=== PATIENT | female | born 1965 | race Caucasian/White ===

== ENCOUNTER 2025-01-27 11:12 | Outpatient (AMB) | payer OTHER, SELFPAY ==
--- NOTE | 2025-01-27 11:17 | A.OFFPC_ITS ---
Vital Signs 01/27/25 11:22 01/27/25 11:32 Height 5 ft 5.04 in Weight 181 lb BMI 30.1 BP 174/90 H 158/94 H Blood Pressure Location Rt brachial Rt brachial Position Sitting Sitting Respiration 14 Pulse 100 Pulse Source Pulse Oximeter Temp 98 F Temp Source Oral Pulse Oximetry (%) 99 Oxygen Delivery Method Room Air Intake Visit Reasons: CPE Intake Note: New patient visit Retirement Consultant Required: No Allergies No Known Allergies Allergy (Verified 01/27/25 11:19) Medication List - Last Reconciled 01/27/25 by Felipa Fermin PA-C loratadine (Claritin) 10 mg PO DAILY Tobacco use date assessed: 01/27/25 Dental Screening Dental Screen Date: 01/27/25 Did you have a dental visit in the last 12 months?: Yes Did you have a dental problem in the last 6 months where you did not have access to dental care?: No Was dental information given to patient?: Patient has dentist HPI CPE HPI Details Patient is a 59-year-old female who presents today to [facility]. She has not seen a provider in many years. CV: Blood pressure today in the office is elevated at 158/94. She states that every time she goes with the dentist her blood pressure is normal. She has a lot of stress and anxiety surrounding doctors appointments. She says that she had a bad experience many years ago and has not been back since. She denies any chest pain or shortness on breath. Psych: Has had some increased anxiety but states that sign has a history of generalized anxiety. She has for most of her life and it has only worsened with age. 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 Bone density: Overdue Colonoscopy: Overdue-does not want this at this point but is open to a cologuard. 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 1. Little interest or pleasure in doing things: not at all 2. Feeling down, depressed, or hopeless: not at all 3. Trouble falling or staying asleep, or sleeping too much: not at all 4. Feeling tired or having little energy: not at all 5. Poor appetite or overeating: not at all 6. Feeling bad about yourself - or that you are a failure or have let yourself or your family down: not at all 7. Trouble concentrating on things, such as reading the newspaper or watching television: not at all 8. Moving or speaking so slowly that other people could have noticed. Or the opposite - being so fidgety or restless that you have been moving around a lot more than usual: not at all 9. Thoughts that you would be better off or of hurting yourself in some way: not at all Total score: 0 Depression Screening Interpretation: Negative Depression Screening Done: Yes 47046 - PHQ-9 Billing: Yes Source: Developed by Drs. Sahil Garza, Sarah Allen, Sean Anderson and colleagues, with an educational juan david from [employer]. Thrive Questionnaire Date Thrive assessed: 01/20/25 I am a: Patient What is your living situation today?: I have a steady place to live Within the past 12 months, did the food you bought not last and you didn't have the money to get more?: Never true Within the past 12 months, did you worry whether your food would run out before you got money to buy more?: Never true Do you have trouble paying for medicines?: No Do you have trouble getting transportation to medical appointments?: No Do you have trouble paying your heating and electricity bill?: No Do you have trouble taking care of your child, family member or friend?: No Do you have trouble with day-to-day activities such as bathing, preparing meals, shopping, managing finances, etc.?: No Are you currently unemployed and looking for a job?: No Are you interested in more education?: No Please select the resources that you would like help with: None Currently or been in a relationship where the following occur: No concerns reported THRIVE Score: 0 AUDIT C Alcohol Use Questionnaire (AUDIT-C) 1. How often do you have a drink containing alcohol?: 2-4 times a month 2. How many drinks containing alcohol do you have on a typical day when you are drinking?: 1 or 2 3. How often do you have six or more drinks on one occasion?: Never Total Score: 2 ERIN-7 AMB Questionnaire ERIN-7 Date ERIN - 7 assessed: 01/27/25 Feeling nervous, anxious, or on edge: 1 = Several days Not being able to stop or control worryin = Several days Worrying too much about different things: 1 = Several days Trouble relaxin = Several days Being so restless that it is hard to sit still: 1 = Several days Becoming easily annoyed or irritable: 0 = Not at all Feeling afraid as if something awful might happen: 1 = Several days Total ERIN-7 score (0-4 normal; 5-9 mild; 10-14 moderate; 15-21 severe): 6 Source: Developed by Drs. Sahil Garza, Sarah Allen, Sean Anderson and colleagues, with an educational juan david from [employer]. ERIN-7 Assessment Billing ERIN-7 Assessment Tool: ERIN-7 Assessment 04390 Physical exam (Primary Care) Vital Signs: Last Vital Signs Temp 98 F 01/27/25 11:22 Pulse 100 01/27/25 11:22 Resp 14 01/27/25 11:22 BP 174/90 H 01/27/25 11:22 Pulse Ox 99 01/27/25 11:22 Oxygen Delivery Method Room Air 01/27/25 11:22 BMI result Body Mass Index 30.1 Tobacco/Smoking Status: Tobacco use Status Tobacco use date assessed 01/27/25 01/27/25 11:27 Patient Tobacco Use Status Former Tobacco user 01/27/25 11:27 e-Cigarette/Vaping Use Never Used 01/27/25 11:27 PHQ-9: PHQ-9 Score PHQ-9: Total score 0 01/27/25 11:27 Depression Screening Interpretation: Negative Thrive Assessment: Date of Thrive Assessment Date Thrive assessed 01/20/25 01/27/25 11:19 Currently or been in a relationship where the following occur: No concerns reported Const Orientation/consciousness: patient oriented x3 HENMT Ears: hearing grossly normal bilaterally Neck Thyroid: Thyroid normal Lymphatic: no lymphadenopathy noted Resp Auscultation: clear to auscultation bilaterally Cardio Rate: regular rate Rhythm: regular rhythm Heart sounds: S1 normal heart sound present and S2 normal heart sound present GI Inspection: Yes normal to inspection Palpation (GI): Soft to palpation and Other GI palpation findings present (nontender, no cva tenderness) Auscultation: normoactive bowel sounds Rectal Exam - Female: deferred Skin General skin exam: no rashes or lesions noted Neuro General: patient oriented x3, gait normal and no focal motor deficits Coding Level of Care Code New Pt Level 4 (47411) Complex EM visit Add On G2211 Diagnoses Elevated blood pressure reading without diagnosis of hypertension R03.0 Generalized anxiety disorder F41.1 Additional Codes ERIN-7 Assessment Billing - ERIN-7 Assessment Tool: ERIN-7 Assessment 81933 ([id number]) PHQ-9 - 02150 - PHQ-9 Billing: Yes ([id number]) Assessment & Plan Assessment & Plan (1) Elevated blood pressure reading without diagnosis of hypertension: Code(s): R03.0 - Elevated blood-pressure reading, without diagnosis of hypertension Category: Medical Plan: She is going to get a blood pressure cuff and check her blood pressures at home. Labs ordered today. She is asymptomatic and reports a being normal at a dentist office a couple of months ago. We will recheck in a few weeks. (2) Generalized anxiety disorder: Code(s): F41.1 - Generalized anxiety disorder Category: Medical Plan: We will start Effexor. Discussed risks and benefits and adverse effects of this medication. Follow up in a few weeks. Sooner if needed. Plan Mammogram ordered, bone density ordered, Cologuard ordered, referral to trimming operator placed. Labs ordered. Orders: Orders MM screening mammo BI Today Z12.31 - Encounter for screening mammogram for malignant neoplasm of breast Complete Blood Count Auto Diff Today R03.0 - Elevated blood-pressure reading, without diagnosis of hypertension, Z01.89 - Encounter for other specified special examinations TSH reflex Free T4 Today R03.0 - Elevated blood-pressure reading, without diagnosis of hypertension, Z01.89 - Encounter for other specified special examinations UA CC w/rflx Micro + Cult Today R03.0 - Elevated blood-pressure reading, without diagnosis of hypertension, Z01.89 - Encounter for other specified special examinations, Z13.220 - Encounter for screening for lipoid disorders Microalbumin, Random (w Creat) Today R03.0 - Elevated blood-pressure reading, without diagnosis of hypertension, Z01.89 - Encounter for other specified special examinations Vitamin B12 and Folate Today R03.0 - Elevated blood-pressure reading, without diagnosis of hypertension, Z01.89 - Encounter for other specified special examinations XR DEXA axial skeleton Today N95.1 - Menopausal and female climacteric states Comprehensive [place]. Panel Fast Today R03.0 - Elevated blood-pressure reading, without diagnosis of hypertension, Z01.89 - Encounter for other specified special examinations Lipid Panel Today R03.0 - Elevated blood-pressure reading, without diagnosis of hypertension, Z01.89 - Encounter for other specified special examinations Referrals [employer] Referral Z01.419 - Encounter for gynecological examination (general) (routine) without abnormal findings Cologuard Test Z12.11 - Encounter for screening for malignant neoplasm of colon Medications: New venlafaxine ER (Effexor XR) 37.5 mg PO QPM 90 caps 0RF
[2025-01-27 11:22] VITALS: BP 174/90; PULSE 100; RESP 14; TEMP 36.6; O2SAT 99; BMI 30.1
[2025-01-27 11:32] VITALS: BP 158/94
== END 2025-01-27 12:06 | disposition home or self-care (01) ==
LOC: HO.HMCFM 11:13
PROVIDERS: PCP Physician Assistant; Visit Provider Physician Assistant
DX: R03.0 Elevated blood-pressure reading, without diagnosis of hypertension (principal); F41.1 Generalized anxiety disorder

== ENCOUNTER → 2025-01-27 11:12 | Outpatient (BNVA) | payer OTHER, SELFPAY | PROVIDERS: PCP Physician Assistant; Visit Provider Physician Assistant | DX: F41.1 Generalized anxiety disorder (principal); R03.0 Elevated blood-pressure reading, without diagnosis of hypertension | CPT/HCPCS: 96127 ==

== ENCOUNTER 2025-02-19 07:52 | Outpatient (REF) | payer OTHER, SELFPAY ==
[2025-02-19 11:16] LABS: MANUAL DIFF FLAG NO
[2025-02-19 11:29] LABS: Hematocrit 44.6 % (37.0-47.0); Hemoglobin 14.3 g/dl (12.0-16.0); Imm Gran Abs Auto 0.02 X10*3/uL (0.00-0.03); Imm Gran Pct Auto 0.3 % (0.0-0.4); Lymphocytes Absolute Auto 2.2 X10*3/uL (1.2-4.9); Mean Corpuscular HGB Conc 32.1 g/dl (31.0-35.0); Mean Corpuscular Hemoglobin 30.3 pg (27.0-33.0); Mean Corpuscular Volume 94.5 fL (80.0-98.0); NRBC Abs Auto 0.000 X10*3/uL (0.0-0.012); NRBC Pct Auto 0.0 /100WBC (0.0-0.2); Platelet Count 366 X10*3/uL (160-400); Red Blood Count 4.72 X10*6/uL (4.20-5.50); White Blood Count 6.7 X10*3/uL (4.8-10.8)
[2025-02-19 11:35] LABS: Appearance Urine Clear; Glucose Urine UA Negative (Negative); PH 6.5 (5.0-9.0); Specific Gravity - Urine 1.015 (1.005-1.025); UMIC TRIGGER UACC YES
[2025-02-19 11:39] LABS: Alanine Aminotransferase 53 U/L (0-31); Albumin Level 4.4 g/dL (3.5-5.0); Alkaline Phosphatase 88 U/L (39-117); Anion Gap 11 (12-20); Aspartate Amino Transferase 42 U/L (5-31); Blood Urea Nitrogen 8 mg/dL (9-16); Calcium 9.3 mg/dL (8.4-10.2); Carbon Dioxide 28 mmol/L (22-29); Chloride 102 mmol/L (96-108); Cholesterol 208 mg/dL (<200); Estimated Glomerular Filt Rate > 60; HDL Cholesterol 47 mg/dL (>40); Potassium 4.1 mmol/L (3.3-5.1); Sodium 137 mmol/L (135-145); Total Protein 7.2 g/dL (6.5-8.0); Triglycerides 155 mg/dL (<150)
[2025-02-19 12:02] LABS: Folate 6.5 ng/mL (> or = 4.0); Vitamin B12 396 pg/mL (200-900)
[2025-02-19 12:17] LABS: Microalbum/Creatinine Ratio Ur 9.6 ug/mg cr (<30)
== END 2025-02-19 07:53 | disposition home or self-care (01) ==
LOC: HO.WFDLDS 07:52
PROVIDERS: Visit Provider Physician Assistant
DX: Z01.89 Encounter for other specified special examinations (principal); R03.0 Elevated blood-pressure reading, without diagnosis of hypertension
CPT/HCPCS: 36415; 80053; 80061; 81001; 82043; 82570; 82607; 82746; 84443; 85025

== ENCOUNTER 2025-03-03 09:31 | Outpatient (AMB) | payer OTHER, SELFPAY ==
--- NOTE | 2025-03-03 09:45 | MHC.PC.OV ---
Vital Signs 03/03/25 09:48 Height 5 ft 5.04 in Weight 178 lb 8 oz BMI 29.7 BP 126/84 Blood Pressure Location Rt brachial Position Sitting Respiration 14 Pulse 75 Pulse Source Pulse Oximeter Pulse Oximetry (%) 96 Oxygen Delivery Method Room Air Intake Visit Reasons: med check, labs and bp Intake Note: Medication follow, lab results. 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 She was seen recently to establish care and noted to have some anxiety and elevated blood pressure readings. CV: Blood pressure today in the office is 126/84. Blood pressures have been normal at home. She states that every time she goes with the dentist her blood pressure is normal. She has a lot of stress and anxiety surrounding doctors appointments. She denies any chest pain or shortness on breath. Psych: She is feeling better with the effexor. She says that this appears to be effective for her because she can tolerate during the day. Her recent example is that she had to bake a cake and normally have put out over the cake not being perfect but took it with ease this weekend. She feels like this is the right dose for her at this point. No SI/HI. She did recently get labs and the LFTs were elevated along with glucose and cholesterol. She states that she has been eating a lot more ice cream and had more dietary indiscretions this summer. She says that she eats ice cream almost every night in his going to stop this. 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 [employer] Current occupational exposures/hazards: No Cognitive needs: No Hearing needs: No Vision needs: Yes (short distance vision ) Questionnaire Thrive Questionnaire Date Thrive assessed: 01/20/25 I am a: Patient What is your living situation today?: I have a steady place to live Within the past 12 months, did the food you bought not last and you didn't have the money to get more?: Never true Within the past 12 months, did you worry whether your food would run out before you got money to buy more?: Never true Do you have trouble paying for medicines?: No Do you have trouble getting transportation to medical appointments?: No Do you have trouble paying your heating and electricity bill?: No Do you have trouble taking care of your child, family member or friend?: No Do you have trouble with day-to-day activities such as bathing, preparing meals, shopping, managing finances, etc.?: No Are you currently unemployed and looking for a job?: No Are you interested in more education?: No Please select the resources that you would like help with: None Currently or been in a relationship where the following occur: No concerns reported THRIVE Score: 0 AUDIT C Alcohol Use Questionnaire (AUDIT-C) 1. How often do you have a drink containing alcohol?: Monthly or less 2. How many drinks containing alcohol do you have on a typical day when you are drinking?: 1 or 2 3. How often do you have six or more drinks on one occasion?: Never Total Score: 1 ERIN-7 AMB Questionnaire ERIN-7 Date ERIN - 7 assessed: 01/27/25 Source: Developed by Drs. Sahil Garza, Sarah Allen, Sean Anderson and colleagues, with an educational juan david from [employer]. Physical exam (Primary Care) Vital Signs: Last Vital Signs Pulse 75 03/03/25 09:48 Resp 14 03/03/25 09:48 BP 126/84 03/03/25 09:48 Pulse Ox 96 03/03/25 09:48 Oxygen Delivery Method Room Air 03/03/25 09:48 BMI result Body Mass Index 29.7 Tobacco/Smoking Status: Tobacco use Status Tobacco use date assessed 03/03/25 03/03/25 09:50 Patient Tobacco Use Status Former Tobacco user 03/03/25 09:50 e-Cigarette/Vaping Use Never Used 03/03/25 09:50 Thrive Assessment: Date of Thrive Assessment Date Thrive assessed 01/20/25 03/03/25 09:47 Currently or been in a relationship where the following occur: No concerns reported Const Orientation/consciousness: patient oriented x3 HENMT Ears: hearing grossly normal bilaterally Neck Thyroid: Thyroid normal Lymphatic: no lymphadenopathy noted Resp Auscultation: clear to auscultation bilaterally Cardio Rate: regular rate Rhythm: regular rhythm Heart sounds: S1 normal heart sound present and S2 normal heart sound present GI Inspection: Yes normal to inspection Palpation (GI): Soft to palpation and Other GI palpation findings present (nontender, no cva tenderness) Auscultation: normoactive bowel sounds Rectal Exam - Female: deferred Skin General skin exam: no rashes or lesions noted Neuro General: patient oriented x3, gait normal and no focal motor deficits Results Reviewed Results Reviewed: Laboratory Tests 02/19/25 02/19/25 07:54 08:04 WBC 6.7 RBC 4.72 Hgb 14.3 Hct 44.6 Plt Count 366 Sodium 137 Potassium 4.1 Chloride 102 Carbon Dioxide 28 Anion Gap 11 L BUN 8 L Creatinine 0.81 Estimated GFR > 60 AST 42 H ALT 53 H Triglycerides 155 H Cholesterol 208 H LDL Cholesterol, Calc 130 H HDL Cholesterol 47 TSH 0.83 Urine Creatinine 103.44 Urine Microalbumin 10.0 Microalb/Creat Ratio 9.6 Coding Level of Care Code Est Pt Level 4 (87971) Complex EM visit Add On G2211 Diagnoses Generalized anxiety disorder F41.1 Elevated blood pressure reading without diagnosis of hypertension R03.0 IFG (impaired fasting glucose) R73.01 Elevated LFTs R79.89 Positive colorectal cancer screening using Cologuard test R19.5 Assessment & Plan Assessment & Plan (1) Generalized anxiety disorder: Code(s): F41.1 - Generalized anxiety disorder Category: Medical Plan: Continue current regimen. Currently doing well with this regimen (2) Elevated blood pressure reading without diagnosis of hypertension: Code(s): R03.0 - Elevated blood-pressure reading, without diagnosis of hypertension Category: Medical Plan: Improved from last visit (3) IFG (impaired fasting glucose): Code(s): R73.01 - Impaired fasting glucose Category: Medical Plan: A1c ordered. We discussed signs and symptoms of diabetes. Advised her to reduce her carbohydrate and sugar intake. (4) Elevated LFTs: Code(s): R79.89 - Other specified abnormal findings of blood chemistry Category: Medical Plan: As above. We will recheck labs (5) Positive colorectal cancer screening using Cologuard test: Code(s): R19.5 - Other fecal abnormalities Category: Medical Plan: Recently completed Cologuard and states that the tests came back over the weekend showing positive results that needed follow up colonoscopy. Ordered referral today. Orders: Referrals Gastroenterology Referral R19.5 - Other fecal abnormalities
[2025-03-03 09:48] VITALS: BP 126/84; PULSE 75; RESP 14; O2SAT 96; BMI 29.7
== END 2025-03-03 10:13 | disposition home or self-care (01) ==
LOC: HO.HMCFM 09:32
PROVIDERS: PCP Physician Assistant; Visit Provider Physician Assistant
DX: F41.1 Generalized anxiety disorder (principal); R03.0 Elevated blood-pressure reading, without diagnosis of hypertension; R73.01 Impaired fasting glucose; R79.89 Other specified abnormal findings of blood chemistry; R19.5 Other fecal abnormalities

== ENCOUNTER 2025-03-19 08:18 | Outpatient (REF) | payer OTHER, SELFPAY ==
[2025-03-19 11:12] LABS: Appearance Urine Clear; Glucose Urine UA Negative (Negative); PH 6.5 (5.0-9.0); Specific Gravity - Urine 1.010 (1.005-1.025); UMIC TRIGGER UACC YES
[2025-03-19 11:54] LABS: Alanine Aminotransferase 23 U/L (0-31); Albumin Level 4.3 g/dL (3.5-5.0); Alkaline Phosphatase 70 U/L (39-117); Aspartate Amino Transferase 24 U/L (5-31); Hemoglobin A1C 218.9807 umol/L; Total Hemoglobin (HGBA1C) 5324.1106 umol/L; Total Protein 7.1 g/dL (6.5-8.0)
== END 2025-03-19 08:19 | disposition home or self-care (01) ==
LOC: HO.WFDLDS 08:18
PROVIDERS: Visit Provider Physician Assistant
DX: Z01.89 Encounter for other specified special examinations (principal); Z13.220 Encounter for screening for lipoid disorders; R03.0 Elevated blood-pressure reading, without diagnosis of hypertension; R73.01 Impaired fasting glucose; R79.89 Other specified abnormal findings of blood chemistry
CPT/HCPCS: 36415; 80076; 81001; 83036

== ENCOUNTER → 2025-03-25 15:44 | Outpatient (AMB) | payer OTHER, SELFPAY ==
--- NOTE | 2025-03-25 15:41 | A.OFFPC_ITS ---
Intake Visit Reasons: prediabetic telehealth or in person Intake Note: Discuss increasing venlafaxine Draft Roller Picker Required: No Allergies No Known Allergies Allergy (Verified 03/25/25 15:42) Medication List - Last Reconciled 03/25/25 by Felipa Fermin PA-C loratadine (Claritin) 10 mg PO DAILY Tobacco use date assessed: 03/25/25 Dental Screening Dental Screen Date: 01/27/25 HPI prediabetic telehealth or in person HPI Details Patient is a 59-year-old female who presents today for a follow up. Psych: She is feeling better with the effexor. She does feel like the medi cation could be a little increased. She is overall feeling like her anxiety still present. She thinks about going for her mammogram every day with some fear/worry. She feels like this is the right dose for her at this point. No SI/HI. Endo: last labs showed A1c of 5.9 . She states that she is making diet changes. 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 Sahil Garza, Sarah Allen, Sean Anderson and colleagues, with an educational juan david from [employer]. Physical exam (Primary Care) Tobacco/Smoking Status: Tobacco use Status Tobacco use date assessed 03/25/25 03/25/25 15:45 Patient Tobacco Use Status Former Tobacco user 03/25/25 15:45 e-Cigarette/Vaping Use Never Used 03/25/25 15:45 Thrive Assessment: Date of Thrive Assessment Date Thrive assessed 01/20/25 03/25/25 15:43 Telehealth Telehealth Telehealth Platform: Telephone Location of provider rendering services: practice address Location of patient: address on file Patient Identification confirmed using: Name, : Yes Telehealth method: voice only Patient verbally consented to treatment: Yes Patient verbally consented to billing insurance company: Yes Patient informed of any privacy concerns related to visit: Yes Minutes spent on Phone/Video with Pt.: 15 Results Reviewed Results Reviewed: Laboratory Tests 02/19/25 03/19/25 07:54 08:20 WBC 6.7 RBC 4.72 Hgb 14.3 Hct 44.6 Plt Count 366 Estimat Average Glucose 123 Hemoglobin A1c % 5.9 AST 24 ALT 23 Coding Level of Care Code Tele Est Pt Level 2 (02124) Diagnoses Generalized anxiety disorder F41.1 Elevated LFTs R79.89 Prediabetes R73.03 Assessment & Plan Assessment & Plan (1) Generalized anxiety disorder: Code(s): F41.1 - Generalized anxiety disorder Category: Medical Plan: Increase venlafaxine to 75 mg (2) Elevated LFTs: Code(s): R79.89 - Other specified abnormal findings of blood chemistry Category: Medical Plan: Improved with diet changes (3) Prediabetes: Code(s): R73.03 - Prediabetes Category: Medical Plan: We reviewed the pathophysiology of diabetes and discussed diet and lifestyle modifications. We will monitor labs. Orders: Orders Comprehensive [place]. Panel Fast Today F41.1 - Generalized anxiety disorder, R73.03 - Prediabetes, R79.89 - Other specified abnormal findings of blood chemistry Lipid Panel Today F41.1 - Generalized anxiety disorder, R73.03 - Prediabetes, R79.89 - Other specified abnormal findings of blood chemistry Hemoglobin A1c Today F41.1 - Generalized anxiety disorder, R73.01 - Impaired fasting glucose, R73.03 - Prediabetes, R79.89 - Other specified abnormal findings of blood chemistry TSH reflex Free T4 Today F41.1 - Generalized anxiety disorder, R73.03 - Prediabetes, R79.89 - Other specified abnormal findings of blood chemistry Complete Blood Count Auto Diff Today F41.1 - Generalized anxiety disorder, R73.03 - Prediabetes, R79.89 - Other specified abnormal findings of blood chemistry Medications: New venlafaxine ER (Effexor XR) 75 mg PO DAILY 90 caps 1RF
== END ==
LOC: HO.HMCFM 15:44
PROVIDERS: PCP Physician Assistant; Visit Provider Physician Assistant
DX: F41.1 Generalized anxiety disorder (principal); R79.89 Other specified abnormal findings of blood chemistry; R73.03 Prediabetes

== ENCOUNTER 2025-04-01 12:27 | Outpatient (REF) | payer OTHER, SELFPAY ==
--- NOTE | ~2025-04-01 | MM_ITS ---
STUDY: DUAL ENERGY X-RAY ABSORPTIOMETRY / DXA REASON FOR EXAM: Female, 59 years old N95.1 - Menopausal and female climacteric states TECHNIQUE: Bone Mineral Density (BMD) measurements of the lumbar spine and left hip were obtained using [employer] COMPARISON: None FINDINGS: L1-L3 BMD: 0.961 g/cm2 L1-L3 T score: -1.7. This corresponds to osteopenia. Left femoral neck BMD: 0.909 g/cm2 Left femoral neck T score: -0.9. This corresponds to Normal bone density. Left total hip BMD: 0.832 g/cm2 Left total hip T score: -1.4. This corresponds to osteopenia. FRAX score: 10 year risk of major osteoporotic fracture 6.3%, 10 year risk of hip fracture 0.3% MM/XR DEXA axial skeleton IMPRESSION: Osteopenia Reference Information: The T-score is the number of standard deviations above or below the standard which is normal for young adults at their peak bone mineral density. The World Health Organization (WHO) interprets the T-scores as follows: At or above -1 SD Normal bone density Between -1 and -2.5 SD Osteopenia At or below -2.5 SD Osteoporosis Electronically signed by: Elinor Castro MD 04/01/2025 02:27 PM EDT
--- NOTE | ~2025-04-01 | MM_ITS ---
EXAMINATION: MM SCREENING DIGITAL BREAST TOMOSYNTHESIS, BILATERAL CLINICAL INFORMATION: Screening. Asymptomatic. COMPARISON: Mammography: Baseline. TECHNIQUE: Digital breast mammography with tomosynthesis is performed in both the craniocaudal and mediolateral oblique views along with computer-aided detection (CAD). FINDINGS: There are scattered areas of fibroglandular density (ACR BI-RADS breast composition Category b). There are no significant masses, abnormal calcifications, or other abnormalities. MM/MM tomosynthesis screening BI IMPRESSION: No mammographic evidence of malignancy. ASSESSMENT: BI-RADS BI-RADS 1 - Negative RECOMMENDATION: Routine annual mammography screening. 1 year F/U This examination should not preclude the clinical evaluation of a suspicious palpable abnormality. This patient's information was entered into a reminder system with a target due date for their next mammogram. Electronically signed by: Latosha Euceda DO 04/05/2025 02:16 PM EDT
== END 2025-04-01 12:28 | disposition home or self-care (01) ==
LOC: HO.MAMMO 12:27
PROVIDERS: PCP Physician Assistant; Visit Provider Physician Assistant
DX: Z12.31 Encounter for screening mammogram for malignant neoplasm of breast (principal); Z13.820 Encounter for screening for osteoporosis; Z78.0 Asymptomatic menopausal state
CPT/HCPCS: 77063; 77067; 77080

== ENCOUNTER → 2025-04-01 13:00 | Outpatient (BNV) | payer OTHER, SELFPAY | PROVIDERS: PCP Physician Assistant; Visit Provider Radiology Body Imaging | DX: E28.39 Other primary ovarian failure (principal) | CPT/HCPCS: 77080 ==

== ENCOUNTER → 2025-05-18 14:41 | Outpatient (AMB) | payer OTHER, SELFPAY ==
--- NOTE | 2025-05-18 14:49 | A.OFFVIS_ITS ---
Vital Signs 05/18/25 14:58 Height 5 ft 5 in Weight 181 lb BMI 30.1 BP 154/70 H Blood Pressure Location Lt brachial Position Sitting Pulse 83 Pulse Oximetry (%) 83 L Oxygen Delivery Method Room Air Intake Visit Reasons: Postive Cologuard Intake Note: Patient new consult for positive Cologuard Patient denies any GI issues. 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 Referred by PCP for further evaluation of positive Cologuard. Polyp Cologuard collection date 02/14/2025. Patient denies changes in bowel habits, reporting regular, daily morning bowel movements with no concerns for constipation or diarrhea. Patient reports stable weight in the 170?180 lb range. No history of heartburn. Prior bloodwork in January was notable for transiently elevated liver enzymes; these normalized in February. No history of malignancy. Medications reviewed, allergies negative. No notable family history of GI cancers; paternal history unknown. Patient denies: fever/chills, n/v, appetite changes, pyrosis, regurgitation,dysphasia, unintentional wt loss, ab pain or melena/hematochezia. Social hx: -denies ETOH use -denies recreational drug use -former smoker, cessation 20+ years. - family hx as below -denies personal hx of CA -denies significant cardiopulmonary history -tolerated anesthesia in the past without difficulty. 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 [employer] Current occupational exposures/hazards: No Cognitive needs: No Hearing needs: No Vision needs: Yes (short distance vision ) Review of Systems Const Reports as per [facility] ENT Reports as per HPI Card Reports as per HPI Resp Reports as per HPI GI Reports as per HPI Reports as per HPI Physical Exam Vital Signs: Last Vital Signs Pulse 83 05/18/25 14:58 BP 154/70 H 05/18/25 14:58 Pulse Ox 83 L 05/18/25 14:58 Oxygen Delivery Method Room Air 05/18/25 14:58 BMI result Body Mass Index 30.1 Const General: healthy appearing, no acute distress and well developed Nutritional Appearance: average body habitus Orientation/consciousness: patient oriented x3 HEENT Head: Yes normal to inspection, Yes normocephalic and Yes atraumatic Face and sinus: Yes normal facial exam Eyes General: appearance normal, both eyes and all related structures Neck Neck: Yes normal visual inspection Resp Effort & Inspection: normal respiratory effort, able to speak in complete sentences, no tracheal deviation and symmetric chest movement Cardio Jugular venous distension: no JVD Neuro General: patient oriented x3 Gait exam (Neuro): Normal gait present Psych Appearance: grossly normal Mental Status: mental status grossly normal Speech and movement: Normal speech and movement present Affect: normal affect Attitude: cooperative Thought process: Normal thought process present Thought content: Normal thought content present Insight: Good insight present (Psych) Judgement: Good judgement present (Psych) Assessment & Plan Assessment & Plan (1) Positive colorectal cancer screening using Cologuard test: Code(s): R19.5 - Other fecal abnormalities Category: Medical Plan: Stool DNA detected; test sensitivity guides need for colonoscopic evaluation regardless of symptomatology. Additional Testing: Diagnostic colonoscopy scheduled within 3?6 months from test date (by 08-17-2025); no additional labs indicated at present given recent normal CBC and metabolic profile. Medication Management: Prescription provided for Miralax split-dose bowel prep and 4 tablets of OTC laxative. Lifestyle Recommendations: - Adhere to clear liquid diet day before procedure (avoid red, blue, or purple liquids). - Total of 64 oz Gatorade (non-red/blue/purple). - NPO 4 hours prior to procedure; must arrange transport due to sedation. Plan Follow-up after colonoscopy or sooner as needed Time: I spent a total of 21 minutes on the date of encounter which includes: Preparing to see the patient (reviewed previous documentation, test results and medical history) Performing a medically appropriate exam and/or evaluation Ordering medications, tests, and procedures Documenting clinical information in the health record Orders: Referrals GI Procedure Notification R19.5 - Other fecal abnormalities, Z12.11 - Encounter for screening for malignant neoplasm of colon Medications: New bisacodyl Take per colonoscopy instructions 20 mg (4 x 5 mg) PO ONCE 4 tabs 0RF polyethylene glycol 3350 (Miralax) per colonoscopy prep instructions 238 grams PO ONCE 238 grams 0RF Coding Level of Care Code New Pt New Pt Level 2 (62480) Patient Type New Diagnoses Positive colorectal cancer screening using Cologuard test R19.5
[2025-05-18 14:58] VITALS: BP 154/70; PULSE 83; O2SAT 83; BMI 30.1
== END ==
LOC: HO.HGI 14:43
PROVIDERS: PCP Physician Assistant; Visit Provider Nurse Practitioner Family
DX: R19.5 Other fecal abnormalities (principal)
CPT/HCPCS: 99202